=== PATIENT | female | born 1995 | race African-American/Black ===

== ENCOUNTER 2016-10-25 13:39 | Emergency (ER) | payer OTHER ==
[~2016-10-25] VITALS: Ht 170.2 cm; Wt 85.4 kg
[~2016-10-25 13:39] MED LIST: PERCOCET 5/31 TABLET PO; ZANTAC150 MG PO; ZOFRAN4 MG PO
[2016-10-25] MEDS ORDERED: NORCO 5/3251 TABLET PO (15:56)
[2016-10-25] MEDS ORDERED: KEFLEX500 MG PO (15:56)
[2016-10-25 16:19] VITALS: BP 115/76
== END 2016-10-25 16:30 | disposition home or self-care (01) ==
LOC: EME 13:39
PROC: 0HQDXZZ Repair Right Lower Arm Skin, External Approach (ICD-10-PCS; principal; 2016-10-25)
DX: S51.811A Laceration without foreign body of right forearm, initial encounter (principal); W25.XXXA Contact with sharp glass, initial encounter; J45.909 Unspecified asthma, uncomplicated; F17.200 Nicotine dependence, unspecified, uncomplicated
CPT/HCPCS: 99281; 99284; J3010

== ENCOUNTER 2016-11-07 14:33 | Emergency (ER) | payer OTHER ==
[~2016-11-07] VITALS: Ht 170.2 cm; Wt 86.3 kg
[~2016-11-07 14:33] MED LIST changes: +KEFLEX500 MG PO; +NORCO 5/3251 TABLET PO
[2016-11-07 15:30] VITALS: BP 117/64
== END 2016-11-07 15:32 | disposition home or self-care (01) ==
LOC: EME 14:33 → RME 14:33
DX: S51.811D Laceration without foreign body of right forearm, subsequent encounter (principal)
CPT/HCPCS: 99281; 99284

== ENCOUNTER 2017-10-09 14:32 | Emergency (ER) | payer OTHER ==
[~2017-10-09] VITALS: Ht 170.2 cm; Wt 84.7 kg
[2017-10-09 15:42] LABS: BASOPHIL (%) 0.4 % (0-1); EOSINOPHIL (%) 4.4 % (0-5); EOSINOPHIL COUNT 0.3 K/uL (0-0.3); HEMATOCRIT 34.5 % (36.0-46.0); HEMOGLOBIN 11.6 G/DL (11.9-15.5); IMMATURE GRANULOCYTE (%) 0.1 % (0.0-0.7); LYMPHOCYTE (%) 35.1 % (15-42); LYMPHOCYTE COUNT 2.5 K/uL (1.0-2.8); MCH 33.1 PG (29.0-34.0); MCHC 33.6 G/DL (30.0-36.0); MCV 98.6 FL (83-99); MONOCYTE (%) 8.7 % (3-12); MONOCYTE COUNT 0.6 K/uL (0-0.8); NEUTROPHIL (%) 51.3 % (45-76); NEUTROPHIL COUNT 3.6 K/uL (1.8-6.4); PLATELET COUNT 247 K/uL (156-360); RBC DIS.WIDTH-CV 13.2 % (11.8-14.6)
[2017-10-09 15:52] LABS: CHLORIDE 107 mEq/L (99-109); SODIUM 140 mEq/L (136-147)
[2017-10-09 15:54] LABS: GLUCOSE 82 mg/dL (70-99)
[2017-10-09 15:58] LABS: CREATININE 0.8 mg/dL (0.6-1.3); GFR ESTIMATE (CALCULATED) > 59 mL/min/
[2017-10-09 15:59] LABS: UREA NITROGEN (BUN) 11 mg/dL (9-23)
[2017-10-09] MEDS ORDERED: PREDNISONE20 MG PO (16:38)
[2017-10-09 17:04] VITALS: BP 133/74
== END 2017-10-09 17:05 | disposition home or self-care (01) ==
LOC: EME 14:32
PROVIDERS: Emergency Medicine
DX: H57.8 Other specified disorders of eye and adnexa (principal); R60.0 Localized edema; J45.909 Unspecified asthma, uncomplicated
CPT/HCPCS: 80048; 85025; 99281; 99284; J1200; J2930